=== PATIENT | female | born 1995 | race Caucasian/White ===

== ENCOUNTER 2019-09-18 18:43 | Emergency (ER) | payer MEDICAID ==
[2019-09-18 18:54] VITALS: BP 148/76
--- NOTE | 2019-09-18 19:13 | ED Physician Documentation ---
PD HPI UPPER EXT INJURY - Stated complaint Stated Complaint: RT ARM PAIN - Chief complaint Chief Complaint: Ext Problem - History obtained from History obtained from: Patient (Shivani 24-year-old female comes in today with concerns for right humerus fracture. She presents with her right humerus in a plastic splint. She fractured the humerus back in May 2018, wore a cast for approximately 2 weeks, and then was placed into the plastic splint. 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 Today she took a fall down some stairs hitting her right humerus proximal to [address] She is concerned that she may rebroke it.) Review of Systems Constitutional: denies: Fever, Chills Cardiac: reports: Reviewed and negative Respiratory: reports: Reviewed and negative Musculoskeletal: reports: Extremity pain (Right upper extremity) Neurologic: denies: Headache, Head injury, LOC PD PAST MEDICAL HISTORY - Past Medical History Musculoskeletal: Other (Fracture of the right humerus, with a nonhealing fra cture Since May 2019) - Allergies Allergies/Adverse Reactions: Allergies Allergy/AdvReac Type Severity Reaction Status Date / Time No Known Drug Allergies Allergy Verified 09/18/19 18:50 PD ED PE NORMAL - General General: Alert and oriented X 3, No acute distress, Well developed/nourished - HEENT HEENT: PERRL, EOMI - Respiratory Respiratory: No respiratory distress - Extremities Extremities: No deformity, Other PD ED PE EXPANDED - Extremities Extremities: Right arm (humerous, plastic splint in place. CMS distal to humerous intact/ w/o numbness, tingling. ) Results - Vitals Vitals: Vital Signs - 24 hr 09/18/19 18:50 Temperature 36.5 C Heart Rate 80 Respiratory 16 Rate Blood Pressure 148/76 H O2 Saturation 97 Oxygen O2 Source Room air - Rads (name of study) No standard instances Radiology: Final report received (Acute displaced spiral fracture mid humeral diaphysis) PD MEDICAL DECISION MAKING - ED course Complexity details: reviewed results, re-evaluated patient, d/w patient Departure - Departure Disposition: 01 Home, Self Care Clinical Impression: Closed fracture of humerus Condition: Good Instructions: ED Fx Upper Ext Comments: You have an "acute displaced spiral fracture through the mid humerus" . You have had this fracture since 05/2019 it appears. It is difficult to tell if this is a new fracture or your old fracture that has not healed. You already have a plastic cast/splint on the right humerus. continue to wear this, along with the sling. Follow up with orthopedics within a week for further evaluation. Call to the Orthopedic office/doctor in [facility] and get your medical records, imaging reports and images on disc if possible before seeing orthopedics. This will help them understand more on what course of action / treatment plan for you. You can take Tylenol for pain control. Avoid taking Ibuprofen or Motrin until told otherwise by orthopedics as this can delay your bone healing.
--- NOTE | 2019-09-18 19:40 | XRAY Report ---
Reason: pain 2/2 fall down stairs, Fx same in 05/21. Procedure Date: 09/18/2019 Accession Number: [id number] / [id number] Procedure: XR - Humerus RT CPT Code: Final Report FULL RESULT: EXAM: RIGHT HUMERUS RADIOGRAPHY EXAM DATE: 09/18/2019 07:29 PM. CLINICAL HISTORY: Pain 2/2 fall down stairs, Fx same in 05/21. COMPARISON: None. TECHNIQUE: 2 views. FINDINGS: Bones: An acute displaced spiral fracture through mid humeral diaphysis. Joints: Normal. No effusions or subluxations in the visualized shoulder or elbow joints. Soft Tissues: Normal. No soft tissue swelling. IMPRESSION: An acute displaced spiral fracture through mid humeral diaphysis. [facility]
== END 2019-09-18 20:09 | disposition home or self-care (01) ==
LOC: ED 18:43
DX: S42.301A Unspecified fracture of shaft of humerus, right arm, initial encounter for closed fracture (principal); W10.9XXA Fall (on) (from) unspecified stairs and steps, initial encounter
CPT/HCPCS: 99283; 99284